=== PATIENT | female | born 1960 | race Caucasian/White ===

== ENCOUNTER → 2021-12-13 07:56 | Outpatient (CLI) | payer OTHER, SELFPAY ==
[2021-12-13 09:14] LABS: Alanine Aminotransferase 19 U/L (12-78); Albumin Level 4.3 g/dl (3.5-5.0); Albumin/Globulin Ratio 1.7 (1.1-1.8); Alkaline Phosphatase 42 U/L (38-126); Anion Gap 12.5 mEq/L (5-15); Aspartate Amino Transferase 29 U/L (14-36); Bilirubin,Total 0.5 mg/dl (0.2-1.3); Blood Urea Nitrogen 11 mg/dl (7-17); Calcium 9.2 mg/dl (8.4-10.2); Carbon Dioxide 25 mmol/L (22.0-30.0); Chloride 104 mmol/L (98-107); Estimated Glomerular Filt Rate 85 ml/min (>60); GFR (African American) 103 ML/MIN (>60); Globulin 2.5 g/dL (1.3-3.2); Glucose 108 mg/dl (74-100); Potassium 4.5 mmoL/L (3.5-5.1); Sodium 137 mmol/L (136-145); Total Protein,Serum 6.8 g/dl (6.3-8.2)
== END ==
PROVIDERS: Visit Provider Family Medicine
DX: H91.91 Unspecified hearing loss, right ear (principal)
CPT/HCPCS: 36415; 80053

== ENCOUNTER → 2021-12-14 14:19 | Outpatient (CLI) | payer OTHER, SELFPAY ==
--- NOTE | 2021-12-14 14:25 | MR_ITS ---
FINAL REPORT CLINICAL HISTORY: HEARING LOSS OF RT EAR, SENSORINEURAL HEARING LOSS. pt states she has a sudden loss of hearing in her right ear x's month. 10ML PROHANCE GIVEN. FINDINGS: Multiplanar MR imaging of the brain was performed without and with contrast. There are numerous foci of increased T2 signal in the cerebral white matter. There is no evidence of intracranial hemorrhage or mass. No abnormal extra-axial fluid collection is seen. The ventricular size is within normal limits. There is no evidence of shift of the midline structures. The posterior fossa and brainstem have an unremarkable appearance. No area of abnormal restricted diffusion is identified. No abnormal contrast enhancement is seen. Normal major vessel vascular flow voids are noted. IMPRESSION: Numerous foci of increased T2 signal in the cerebral white matter favors moderate chronic ischemic/gliotic recovery rn demyelination or vasculitis. Reviewed, Interpreted and Dictated by Enrike Del Angel III, MD Transcribed by Julien Mccarthy Authenticated by Enrike Del Angel III, MD on 12/14/2021 04:33:06 PM [facility]
== END ==
PROVIDERS: PCP Family Medicine; Visit Provider Nurse Practitioner Family
DX: H91.91 Unspecified hearing loss, right ear (principal); H90.5 Unspecified sensorineural hearing loss
CPT/HCPCS: 70553; A9576